=== PATIENT | male | born 1995 | race Two or more races ===

== ENCOUNTER 2018-03-06 15:04 | Emergency (ER) | payer BC, OTHER ==
[~2018-03-06] VITALS: Ht 177.8 cm; Wt 68.0 kg
[2018-03-06 15:25] VITALS: BP 131/79
== END 2018-03-06 17:48 | disposition home or self-care (01) ==
LOC: ER 15:04 → EDBD 15:04 → ER 17:48
DX: S93.401A Sprain of unspecified ligament of right ankle, initial encounter (principal); X50.1XXA Overexertion from prolonged static or awkward postures, initial encounter; Y93.89 Activity, other specified; Y92.89 Other specified places as the place of occurrence of the external cause; Y99.8 Other external cause status
CPT/HCPCS: 73610